=== PATIENT | female | born 2000 | race Caucasian/White ===

== ENCOUNTER 2021-07-17 17:19 | Emergency (ER) | payer OTHER ==
[~2021-07-17 17:19] MED LIST: COLACE 100MG C100 MG PO
[2021-07-17 18:34] LABS: HEMOGLOBIN 11.5 gm/dl (12.3-15.3); RED BLOOD COUNT 3.74 M/UL (4.00-5.10); WHITE BLOOD COUNT 11.1 K/UL (4.5-11.0)
[2021-07-17 18:52] LABS: BUN/CREATININE RATIO 20 (0-10)
[2021-07-17] MEDS ORDERED: CEPHALEXIN500 M1 PO (22:38)
== END 2021-07-17 22:51 | disposition home or self-care (01) ==
LOC: ER1 17:19
PROVIDERS: Physician Assistant
DX: O20.0 Threatened abortion (principal); O23.91 Unspecified genitourinary tract infection in pregnancy, first trimester; R82.71 Bacteriuria; Z3A.01 Less than 8 weeks gestation of pregnancy
CPT/HCPCS: 76815; 80053; 81001; 84702; 85025; 86900; 86901; 87086; 99284

== ENCOUNTER 2022-02-22 05:31 | Inpatient (IN) | payer OTHER ==
[~2022-02-22] VITALS: Ht 160 cm; Wt 67.6 kg
[~2022-02-22 05:31] MED LIST changes: +CEPHALEXIN500 M1 PO
[2022-02-22] MEDS ORDERED: PRENATAL VITAM1 EAC8 PO (06:11)
[2022-02-22 06:29] LABS: HEMOGLOBIN 11.3 gm/dl (12.3-15.3); RED BLOOD COUNT 3.61 M/UL (4.00-5.10); WHITE BLOOD COUNT 12.2 K/UL (4.5-11.0)
[2022-02-22] MEDS ORDERED: HYDROCODON-ACE1 EAC6 PO (07:38)
[2022-02-22] MEDS ORDERED: COLACE 100MG C100 MG PO (07:38)
[2022-02-22] MEDS ORDERED: IBUPROFEN600 MG PO (07:38)
[2022-02-22 08:15] LABS: BUN/CREATININE RATIO 18 (0-10)
== END 2022-02-23 15:29 | disposition home or self-care (01) | DRG 788 ==
LOC: OB 05:31
PROVIDERS: ADMIT Obstetrics & Gynecology
PROC: 3E0234Z Introduction of Serum, Toxoid and Vaccine into Muscle, Percutaneous Approach (ICD-10-PCS; 2022-02-22)
PROC: 10D00Z1 Extraction of Products of Conception, Low, Open Approach (ICD-10-PCS; principal; 2022-02-22 07:30)
DX: O13.4 Gestational [pregnancy-induced] hypertension without significant proteinuria, complicating childbirth (principal); O32.1XX0 Maternal care for breech presentation, not applicable or unspecified; Z37.0 Single live birth; Z3A.38 38 weeks gestation of pregnancy; Z28.310 Unvaccinated for COVID-19; Z83.3 Family history of diabetes mellitus; Z80.3 Family history of malignant neoplasm of breast; Z82.49 Family history of ischemic heart disease and other diseases of the circulatory system; Z23 Encounter for immunization
CPT/HCPCS: 36415; 80053; 81001; 82800; 85014; 85018; 85025; 90715; C9113; J0690; J1170; J2405; J2550; J2590